=== PATIENT | male | born 1980 | race Caucasian/White ===

== ENCOUNTER → 2021-08-19 09:20 | Outpatient (CLI) | payer OTHER, MEDICAID, SELFPAY ==
--- NOTE | 2021-08-19 | DI.CT.S_ITS ---
PROCEDURE: CT ANGIO CHEST PE PROTOCOL INDICATIONS: Personal history of other venous thrombosis and embolism TECHNIQUE: After the administration of intravenous contrast, 2 mm thick sections acquired from the pulmonary apices to the posterior costophrenic angles. 3-dimensional maximum intensity projection (MIP) coronal and sagittal reformats were then acquired through the thorax. For radiation dose reduction, the following was used: automated exposure control, adjustment of mA and/or kV according to patient size. COMPARISON: None. FINDINGS: Image quality: Excellent. Pulmonary arteries: Question tiny adherent embolus it here into the wall of the right lower lobe pulmonary artery on image 88/5 as well as tiny adherent basilar right lower lobe pulmonary emboli on image 104 and image 105, possibly representing chronic sequelae of previous pulmonary embolus. No findings suggesting acute pulmonary emboli. Lungs and pleura: Lungs are clear. No pleural effusions or pneumothorax. Central and peripheral airways are patent. Mediastinum: Heart size is normal, without pericardial effusion. No mediastinal or hilar adenopathy. Thoracic aorta is normal in caliber and enhancement. Esophagus is normal in caliber, without hiatal hernia. Bones and chest wall: No suspicious bony lesions. Ribs and thoracic spine appear intact throughout. Thyroid gland is unremarkable as visualized. No axillary or supraclavicular adenopathy. Abdomen: Visualized upper abdominal solid organs appear normal in the early arterial phase of enhancement. IMPRESSION: 1. Findings in the right lower lobe pulmonary artery and basilar right lower lobe pulmonary artery segment most likely represent tiny adherent sequelae of previous pulmonary emboli. No findings present which are suspicious for acute pulmonary emboli. 2. No evidence of acute pulmonary process. Dictated by: Woody Torres M.D. on 08/19/2021 at 10:06 Approved by: Woody Torres M.D. on 08/19/2021 at 10:24
== END ==
PROVIDERS: PCP Family Medicine; Referring Provider Family Medicine; Visit Provider Family Medicine
DX: M54.6 Pain in thoracic spine (principal); R06.02 Shortness of breath; Z86.718 Personal history of other venous thrombosis and embolism
CPT/HCPCS: 71275

== ENCOUNTER 2022-02-12 13:35 | Emergency (ER) | payer OTHER, MEDICAID, SELFPAY ==
[2022-02-12 14:23] VITALS: BP 141/86; PULSE 68; RESP 18; TEMP 36.5; O2SAT 96; BMI 29.0
--- NOTE | 2022-02-12 14:30 | DI.RAD.S_ITS ---
PROCEDURE: XR CHEST 2V INDICATIONS: cough for two weeks, difficulty breathing, had covid TECHNIQUE: 2 views of the chest were acquired. COMPARISON: None. FINDINGS: Surgical changes and devices: None. Lungs and pleura: Lungs are clear. No pleural effusions or pneumothorax. Mediastinum: Mediastinal contours are normal. Heart size is normal. Bones and chest wall: No suspicious bony abnormalities. Soft tissues appear unremarkable. IMPRESSION: No acute cardiopulmonary findings. Dictated by: Jasmina Jean M.D. on 02/12/2022 at 14:45 Approved by: Jasmina Jean M.D. on 02/12/2022 at 14:45
[2022-02-12 17:18] VITALS: PULSE 66; RESP 16; O2SAT 97
--- NOTE | 2022-02-12 18:29 | ED.URI ---
HPI - URI/Sore Throat <Ivette Linda PA-C - Last Filed: 02/12/22 18:38> General Chief Complaint: Upper Respiratory Symptoms Stated Complaint: ANDRES Bolanos Time Seen by Provider: 02/12/22 16:44 Source: patient Mode of arrival: Ambulatory History of Present Illness HPI Narrative: Patient is a 42-year-old male presenting with shortness of breath and cough for 1 week. He was diagnosed with COVID-19 2 weeks ago. His prior COVID-19 symptoms have since resolved but he has new onset cough and shortness of breath. He describes the cough as dry and nonproductive, and shortness of breath is worse with exertion. He denies any headache, dizziness, nasal congestion, sore throat, chest pain, abdominal pain, nausea. He presented to the ER today because he was concerned he may have pneumonia. He has an albuterol inhaler that he has tried taking once with limited resolution of symptoms. Related Data Home Medications Medication Instructions Recorded Confirmed rivaroxaban 20 mg tablet (Xarelto) 20 mg PO DAILY 11/10/20 01/11/22 magnesium chloride 64 mg 64 mg PO DAILY 01/11/22 01/11/22 tablet,extended release Previous Rx's Medication Instructions Recorded rivaroxaban 20 mg tablet 20 mg PO DAILY #180 tab 07/13/21 Allergies Allergy/AdvReac Type Severity Reaction Status Date / Time No Known Allergies Allergy Verified 11/10/20 15:50 Review of Systems <Ivette Linda PA-C - Last Filed: 02/12/22 18:38> Review of Systems Narrative: GENERAL: Denies fatigue, fever, or chills HEENT: Denies ear pain, vision changes, sore throat, or difficulty swallowing RESPIRATORY: See HPI. CARDIOVASCULAR: Denies chest pain, pressure, palpitations, or edema GASTROINTESTINAL: Denies, nausea, vomiting, changes in bowel movements, or abdominal pain : Denies dysuria, frequency, hematuria, or flank pain MUSCULOSKELETAL: Denies weakness, arthralgias, or myalgias SKIN: No rash, pruritis, or erythema NEUROLOGIC: Denies weakness, dizziness, headache, numbness, tingling or confusion PSYCHIATRIC: No concerning psychosocial issues. Patient History <Ivette Linda PA-C - Last Filed: 02/12/22 18:38> Medical History Chronic back pain Surgical History H/O knee surgery Family History Brother VTE (venous thromboembolism) Social History Smoking Status: Never smoker substance use type: does not use Smoking Status: Never smoker alcohol intake frequency: 0-2 drinks per day Substance Use Type: marijuana Exam <Ivette Linda PA-C - Last Filed: 02/12/22 18:38> Narrative Exam Narrative: GENERAL: 42 year old patient appears stated age. Well-developed patient, in mild distress. HEAD: Atraumatic. Normocephalic. EYES: Pupils equal round and reactive. Extraocular motions intact. No scleral icterus. No injection or drainage. ENT: Nose without bleeding, purulent drainage. Throat without erythema, tonsillar hypertrophy or exudate. Airway patent. NECK: Trachea midline. Non tender CARDIOVASCULAR: Regular rate and rhythm without murmurs, gallops, or rubs. RESPIRATORY: Clear to auscultation. Breath sounds equal bilaterally. No wheezes, rales, or rhonchi. GASTROINTESTINAL: Abdomen soft, non-tender, nondistended. EXTREMITIES: No edema or joint tenderness. BACK: Nontender without deformity or crepitance. No flank tenderness. NEURO: AOx3. SKIN: No rash, edema, or erythema of visible areas Initial Vital Signs Initial Vital Signs: Vital Signs Temperature 97.7 F 02/12/22 14:23 Pulse Rate 68 02/12/22 14:23 Respiratory Rate 18 02/12/22 14:23 Blood Pressure 141/86 H 02/12/22 14:23 Pulse Oximetry 96 02/12/22 14:23 <Beth Jimenez DO - Last Filed: 02/17/22 07:14> Initial Vital Signs Initial Vital Signs: Vital Signs Temperature 97.7 F 02/12/22 14:23 Pulse Rate 68 02/12/22 14:23 Respiratory Rate 18 02/12/22 14:23 Blood Pressure 141/86 H 02/12/22 14:23 Pulse Oximetry 96 02/12/22 14:23 Course <Ivette Linda PA-C - Last Filed: 02/12/22 18:38> Orders Ordered: ED Orders 02/12/22 14:30 XR chest 2V Stat Vital Signs Vital signs: Vital Signs - 8 hr 02/12/22 14:23 02/12/22 17:18 Temperature 97.7 F Pulse Rate 68 66 Respiratory Rate 18 16 Blood Pressure 141/86 H Pulse Oximetry 96 97 <Beth Jimenez DO - Last Filed: 02/17/22 07:14> Orders Ordered: ED Orders 02/12/22 14:30 XR chest 2V Stat Vital Signs Vital signs: Vital Signs - 8 hr 02/12/22 14:23 02/12/22 17:18 Temperature 97.7 F Pulse Rate 68 66 Respiratory Rate 18 16 Blood Pressure 141/86 H Pulse Oximetry 96 97 MDM - URI/Sore Throat <Ivette Linda PA-C - Last Filed: 02/12/22 18:38> Imaging Data Chest x-ray: Radiologist's Impression: [address] [address] XRay Report Signed Patient: Hill Harper MR#: [id number] : 1980 Acct:[id number] Age/Sex: 42 / M Date of Service: 02/12/22 Loc: ED Accession Number: [id number] ?? Procedure: XR chest 2V Ordering Provider: Beth Jimenez D.O. PROCEDURE:? XR CHEST 2V ? INDICATIONS:? cough for two weeks, difficulty breathing, had covid ? TECHNIQUE:? 2 views of the chest were acquired.? ? COMPARISON:? None. ? FINDINGS:? ? Surgical changes and devices:? None.? ? Lungs and pleura:? Lungs are clear.? No pleural effusions or pneumothorax.? ? Mediastinum:? Mediastinal contours are normal.? Heart size is normal.? ? Bones and chest wall:? No suspicious bony abnormalities.? Soft tissues appear unremarkable.? ? IMPRESSION:? No acute cardiopulmonary findings. ? ? Dictated by: Jasmina Jean M.D. on 02/12/2022 at 14:45 ? ? Approved by: Jasmina Jean M.D. on 02/12/2022 at 14:45 ? MDM Narrative Medical decision making narrative: Patient is a 42-year-old man presenting today with shortness of breath and cough for the past 7 days. His chest x-ray came back normal. His vitals are stable, and his lungs are clear bilaterally with equal breath sounds and no signs of wheezing. Based on the HPI and physical exam, his symptoms are likely due to his COVID-19 diagnosis 2 weeks ago and should improve as he continues to recover. I encouraged him to drink plenty of fluids, use a humidifier or steam shower, and to continue taking his albuterol he inhaler as needed. I instructed him to return to the ER with worsening shortness of breath, chest pain, leg swelling, or other concerning symptoms. Findings and discharge diagnosis discussed with patient/family followed by verbalization of understanding Return precautions discussed with patient/family whom verbalize understanding. Discharge Plan Departure Patient Disposition: Home Clinical Impression: SOB (shortness of breath), Cough Instructions: DI for Viral Syndrome Activity Restrictions/Additional Instructions: *You have been diagnosed with shortness of breath and cough likely due to COVID-19 diagnosis. As discussed, you should drink plenty of fluids, use a humidifier or steam shower, and continue taking your albuterol inhaler as needed. If your cough and shortness of breath worsen or you develop a fever, chest pain, unusual swelling, or other concerning symptoms please return back to the ER. *Please follow up with your primary care provider in 2-3 days, call for an appointment. Let them know you were seen in the Emergency Department and that we ask that you be seen in follow up. We will electronically transmit a record of today's note if your PCP is in our system *If you do not have a primary care provider please contact the [facility] Center at [phone] and they can help get you set up with a doctor in the community. *Return to Emergency Department if you should have any new, worsening or concerning symptoms, such as [fever greater than 101 F, shaking chills, worsening pain, persistent vomiting or other bothersome symptoms] Prescriptions: No Action Xarelto 20 mg Tablet 20 mg PO DAILY 0RF rivaroxaban 20 mg Tablet 20 mg PO DAILY Qty: 180 2RF Rx Instructions: must administer with evening meal Slow-Mag 64 mg Tablet Extended Release 64 mg PO DAILY 0RF Referrals: Buck Pearce MD [Primary Care Provider] - <Beth Jimenez DO - Last Filed: 02/17/22 07:14> Cosign ED Attending Cosignature Attestation: I was immediately available in the department for consultation. Documentation has been reviewed. Case was discussed.
== END 2022-02-12 17:18 | disposition home or self-care (01) ==
PROVIDERS: Emergency Provider Physician Assistant; PCP Family Medicine
DX: R06.02 Shortness of breath (principal); R05.9 Cough, unspecified; Z86.16 Personal history of COVID-19
CPT/HCPCS: 71046; 99283

== ENCOUNTER 2023-04-20 07:35 | Emergency (ER) | payer OTHER, MEDICAID, SELFPAY ==
[2023-04-20 07:53] VITALS: BP 151/94; PULSE 67; RESP 14; TEMP 36.5; O2SAT 99; BMI 26.9
--- NOTE | 2023-04-20 08:05 | PC.NURSE ---
Uritcaria and raised rash on R upper arm, bilateral flanks.
--- NOTE | 2023-04-20 08:12 | ED.ALLEREA ---
HPI - Allergic Reaction General Chief complaint: Allergic Reaction Stated complaint: allergic reaction Time Seen by Provider: 04/20/23 08:01 Source: patient Mode of arrival: Ambulatory History of Present Illness HPI narrative: Patient brought self here for complaints of itching and red raised lesions on his forearms for the past week. Has had hives on the forearms bilaterally and on his waist area. Sometimes on his legs. Denies denies any new products. No new detergents soaps shampoos medications or foods. 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 Last night he had some swelling to his upper lip which is new. Is not on any lisinopril or POLO inhibitor blood pressure medication. No trouble breathing. No drooling. No tongue swelling or elevation. Patient does have history of pulmonary embolism, has been on Xarelto since 2014. Denies denies any chest pain or shortness of breath. There is family history of autoimmune diseases including scleroderma and coagulation disorder. Patient has been taking Benadryl for the itching. At this time laboratory studies would likely be skewed for inflammatory markers. No blood work to be done today. 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 Related Data Home Medications Medication Instructions Recorded Confirmed magnesium chloride 64 mg 64 mg PO DAILY 01/11/22 01/11/22 tablet,extended release Previous Rx's Medication Instructions Recorded rivaroxaban 20 mg tablet (Xarelto) 20 mg PO DAILY #30 tabs 08/11/22 famotidine 20 mg tablet 20 mg PO BID #14 tabs 04/20/23 hydroxyzine HCl 25 mg tablet 25 mg PO QID PRN itching #20 tabs 04/20/23 methylprednisolone 4 mg tablets in See Rx Instructions PO .COMPLEX 04/20/23 a dose pack (Medrol (Hakeem)) #21 ea Allergies Allergy/AdvReac Type Severity Reaction Status Date / Time No Known Allergies Allergy Verified 11/10/20 15:50 Review of Systems Review of Systems Narrative: GENERAL: negative chills, fatigue, malaise, fever, sweats. HEENT: negative sinus pain, ear pain, sore throat RESPIRATORY: negative dyspnea, cough CARDIOVASCULAR: negative chest pain, palpitations GASTROINTESTINAL: negative nausea, vomiting, abdominal pain : negative dysuria, frequency, hematuria MUSCULOSKELETAL: negative muscle or bony pain SKIN: Positive pruritus, rash, skin lesions NEUROLOGIC: negative weakness, numbness ROS Unobtainable: All systems reviewed & are unremarkable except as noted in HPI and below Patient History Medical History Chronic back pain Surgical History H/O knee surgery Family History Brother VTE (venous thromboembolism) Social History Smoking Status: Never smoker substance use type: does not use Smoking Status: Never smoker alcohol intake frequency: 0-2 drinks per day Substance Use Type: marijuana Exam Narrative Exam Narrative: GENERAL: in no distress, not toxic not dyspneic HEAD: Normocephalic. EYES: Pupils equal round ENT: Mucous membranes moist. No tongue elevation or drooling. No trismus or malocclusion. There is mild/moderate edema to the mid upper lip. It is symmetric. NECK: Trachea midline. No stridor. CARDIOVASCULAR: Regular rate and rhythm RESPIRATORY: Clear to auscultation. Breath sounds equal bilaterally. No wheezes, rales, or rhonchi. Speaking full sentences. No respiratory distress GASTROINTESTINAL: Abdomen soft, non-tender EXTREMITIES: No gross deformities. BACK: No flank tenderness. NEURO: AOx4. SKIN: Warm and dry, currently there are 2 erythematous hives on the right bicep. None seen on the back or chest or abdomen. None on the face. PSYCH: Not anxious, is cooperative Initial Vital Signs Initial Vital Signs: Vital Signs Temperature 97.7 F 04/20/23 07:53 Pulse Rate 67 04/20/23 07:53 Respiratory Rate 14 04/20/23 07:53 Blood Pressure 151/94 H 04/20/23 07:53 Pulse Oximetry 99 04/20/23 07:53 Oxygen Delivery Method Room Air 04/20/23 07:53 Course Orders Ordered: Discontinued Medications Famotidine (Famotidine 20 Mg/2 Ml Vial) 20 mg IV NOW HAMMAD Last Admin: 04/20/23 08:32 Dose: 20 mg Documented By: ST Methylprednisolone (Methylprednisolone 125 Mg/2 Ml Vial) 125 mg IV NOW ONE Stop: 04/20/23 08:13 Last Admin: 04/20/23 08:32 Dose: 125 mg Documented By: ST Vital Signs Vital signs: Vital Signs - 8 hr 04/20/23 07:53 Temperature 97.7 F Pulse Rate 67 Respiratory Rate 14 Blood Pressure 151/94 H Pulse Oximetry 99 Oxygen Delivery Method Room Air MDM - Allergic Reaction MDM Narrative Medical decision making narrative: Patient brought self here for complaints of itching and red raised lesions on his forearms for the past week. Has had hives on the forearms bilaterally and on his waist area. Sometimes on his legs. Denies denies any new products. No new detergents soaps shampoos medications or foods. 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 Last night he had some swelling to his upper lip which is new. Is not on any lisinopril or POLO inhibitor blood pressure medication. No trouble breathing. No drooling. No tongue swelling or elevation. Patient does have history of pulmonary embolism, has been on Xarelto since 2014. Denies denies any chest pain or shortness of breath. There is family history of autoimmune diseases including scleroderma and coagulation disorder. Patient has been taking Benadryl for the itching. At this time laboratory studies would likely be skewed for inflammatory markers. No blood work to be done today. 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 After history and exam Solu-Medrol Pepcid MDM CC: Hives Complicating co-morbidities: Family history autoimmune disease, sister with scleroderma Data collected from: Patient Medical records reviewed: No recent visit for this complaint Differential considered: Includes but not limited to contact dermatitis urticaria angioedema Exam documented above, pertinent findings include: Hives on right arm Lab Test results independently reviewed as above. Pertinent findings: None indicated at this time Treatments: Solu-Medrol Pepcid Re-evaluations: 9:30 a.m. Reviewed exam with patient. Patient in no distress. No airway compromise at time of discharge. Patient agrees with treatment plan. He does have family doctor to follow up for referral to veterans' counselor hvac lead chip applying machine tender. Return precautions reviewed, he desires discharge home. Not toxic or dyspneic. Patient has not any worsening his hives or lip swelling. Airway intact. Discussion: Appropriate for discharge home. No laboratory studies indicated at this time as patient has been taking Benadryl and may skew inflammatory markers or autoimmune markers. Appropriate for outpatient follow up. Appropriate for starting prednisone and Pepcid at this time. Hydroxyzine will given as needed for itching. Not toxic at discharge. Return precautions reviewed. Patient desires discharge home. Patient observed here for 2 hours, no airway compromise Diagnosis: Urticaria Discharge Plan Departure Patient Disposition: Home Clinical Impression: Urticaria Instructions: DI for Hives Activity Restrictions/Additional Instructions: Continue steroid pack tomorrow. Prescriptions have been sent to your pharmacy and ready to steel pickler likely today. Please see family doctor this week for re-evaluation and get referral for Dermatology, Rheumatology, and allergy testing. Return if worse if any questions or concerns Prescriptions: New famotidine 20 mg tablet 20 mg PO BID Qty: 14 0RF methylprednisolone [Medrol (Hakeem)] 4 mg tablets,dose pack See Rx Instructions .ROUTE .COMPLEX Qty: 21 0RF Rx Instructions: orally per package directions hydroxyzine HCl 25 mg tablet 25 mg PO QID PRN (Reason: itching) Qty: 20 0RF No Action Slow-Mag 64 mg Tablet Extended Release 64 mg PO DAILY Xarelto 20 mg Tablet 20 mg PO DAILY Qty: 30 0RF Rx Instructions: take with evening meal daily Referrals: Buck Pearce MD [Primary Care Provider] - Stand Alone Forms: Patient Portal/API
[2023-04-20] MEDS: methylPREDNISolone 125 MG/2 ML VIAL IV (08:32)
[2023-04-20] MEDS: FAMOTIDINE 20 MG/2 ML VIAL IV (08:32)
[2023-04-20 09:18] VITALS: PULSE 65; RESP 18; O2SAT 98
[2023-04-20 09:30] VITALS: BP 139/84; PULSE 67; RESP 20; O2SAT 99
== END 2023-04-20 10:00 | disposition home or self-care (01) ==
PROVIDERS: Emergency Provider Emergency Medicine; PCP Family Medicine
DX: L50.9 Urticaria, unspecified (principal); T78.40XA Allergy, unspecified, initial encounter
CPT/HCPCS: 36415; 96374; 96375; 99284; J2930

== ENCOUNTER 2024-11-15 10:13 | Emergency (ER) | payer OTHER, SELFPAY ==
[2024-11-15 10:16] VITALS: BP 148/92; PULSE 58; RESP 12; TEMP 36.6; O2SAT 98; BMI 31.1
--- NOTE | 2024-11-15 10:24 | EKG_ITS ---
[address] [address] Test Date: 2024-11-15 Pat Name: Hill Harper Department: Room: Gender: Male [employer]: AGATA : 1980 Requested By: Order Number: [id number] Reading MD: Yeison Merchant Measurements Intervals [place] Rate: 57 P: 33 MA: 172 QRS: 45 QRSD: 114 T: 30 QT: 426 QTc: 414 Interpretive Statements Sinus bradycardia with sinus arrhythmia Cannot rule out Anterior infarct , age undetermined Electronically Signed On 11-18-2024 18:55:30 PST by Yeison Merchant
[2024-11-15 10:37] VITALS: BP 131/80; PULSE 62; RESP 16; RESP 18; O2SAT 97; O2SAT 98
--- NOTE | 2024-11-15 10:40 | ED.CHESTPAIN ---
HPI - Chest Pain General Chief Complaint: Chest Pain Stated Complaint: SOB/ Dizziness blood clotting disorder Time Seen by Provider: 11/15/24 10:30 Source: patient Mode of arrival: Ambulatory Limitations: no limitations History of Present Illness HPI narrative: Patient here for dizziness dyspnea for the past 3 weeks. Patient recently traveled to [place] for family vacation. 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 Patient sees hematology, Dr. Han type 3 protein S deficiency. Patient in no distress at this time. Not requiring supplemental oxygen. Patient is speaking full sentences. Patient has had right side chest discomfort. Last CT imaging of chest done here August 19. Denies any calf pain or any new leg swelling. He wears compression stockings daily. Related Data Home Medications Medication Instructions Recorded Confirmed magnesium chloride 64 mg 64 mg PO DAILY 01/11/22 01/11/22 tablet,extended release Previous Rx's Medication Instructions Recorded rivaroxaban 20 mg tablet (Xarelto) 20 mg PO DAILY #30 tabs 08/11/22 famotidine 20 mg tablet 20 mg PO BID #14 tabs 04/20/23 hydroxyzine HCl 25 mg tablet 25 mg PO QID PRN itching #20 tabs 04/20/23 methylprednisolone 4 mg tablets in See Rx Instructions PO .COMPLEX 04/20/23 a dose pack (Medrol (Hakeem)) #21 ea Allergies Allergy/AdvReac Type Severity Reaction Status Date / Time No Known Allergies Allergy Verified 11/15/24 10:26 Review of Systems Review of Systems Narrative: GENERAL: Negative chills, fatigue, malaise, fever, sweats. HEENT: Negative sinus pain, ear pain, sore throat RESPIRATORY: Positive dyspnea, negative cough CARDIOVASCULAR: Positive chest pain, negative palpitations GASTROINTESTINAL: Negative nausea, vomiting, abdominal pain : Negative dysuria, frequency, hematuria MUSCULOSKELETAL: Negative muscle or bony pain SKIN: Negative rash, skin lesions NEUROLOGIC: Negative weakness, numbness, positive dizziness ROS Unobtainable: All systems reviewed & are unremarkable except as noted in HPI and below Patient History Medical History Chronic back pain Surgical History H/O knee surgery Family History Brother VTE (venous thromboembolism) Social History Smoking Status: Never smoker substance use type: does not use Smoking Status: Never smoker alcohol intake frequency: 0-2 drinks per day Exam Narrative Exam Narrative: GENERAL: in no distress, not toxic not dyspneic HEAD: Normocephalic. EYES: Pupils equal round ENT: Mucous membranes moist. NECK: Trachea midline. CARDIOVASCULAR: Regular rate and rhythm RESPIRATORY: Clear to auscultation. Breath sounds equal bilaterally. No wheezes, rales, or rhonchi. Chest is nontender. GASTROINTESTINAL: Abdomen soft, non-tender EXTREMITIES: No gross deformities. Nontender calves. BACK: No flank tenderness. NEURO: AOx4. Clear speech SKIN: Warm and dry PSYCH: Not anxious, is cooperative Initial Vital Signs Initial Vital Signs: Vital Signs Temperature 97.9 F 11/15/24 10:16 Pulse Rate 58 L 11/15/24 10:16 Respiratory Rate 12 11/15/24 10:16 Blood Pressure 148/92 H 11/15/24 10:16 Pulse Oximetry 98 11/15/24 10:16 Oxygen Delivery Method Room Air 11/15/24 10:16 Course Orders Ordered: Discontinued Medications Sodium Chloride (Normal Saline 0.9%) 1,000 mls @ 1,000 mls/hr IV BOLUS ONE Stop: 11/15/24 11:38 Last Infusion: 11/15/24 12:28 Dose: Infused Documented By: Admin: 11/15/24 11:26 Dose: 1,000 mls/hr Documented By: MAYRA Vital Signs Vital signs: Vital Signs - 8 hr 11/15/24 10:16 11/15/24 10:37 Temperature 97.9 F Pulse Rate 58 L 62 Respiratory Rate 12 18 Blood Pressure 148/92 H 131/80 Pulse Oximetry 98 97 Oxygen Delivery Method Room Air Room Air MDM - Chest Pain Lab Data 11/15/24 10:25 11/15/24 10:25 Labs: Lab Results 11/15/24 11/15/24 Range/Units 10:25 10:45 WBC 8.0 (4.5-11.0) X10^3/uL RBC 5.76 (4.5-5.9) X10^6/uL Hgb 17.1 (13.5-17.5) g/dL Hct 49.2 (41-53) % MCV 85.4 (80-100) fL MCH 29.7 (26-34) PG MCHC 34.7 (30-36) % RDW 13.9 (11.6-14.8) % Plt Count 178 (150-400) X10^3/uL Neut % (Auto) 47.7 L (50-75) % Lymph % (Auto) 41.6 H (25-40) % [place] % (Auto) 7.2 (3-14) % Eos % (Auto) 3.0 (2-4) % Baso % (Auto) 0.5 (0-2) % Neut # (Auto) 3800 (1671-6982) /uL Lymph # (Auto) 3300 (6558-8646) /uL [place] # (Auto) 600 (0-900) /uL Eos # (Auto) 200 (0-450) /uL Baso # (Auto) 0 (0-100) /uL PT 15.4 H (9.4-12.5) SECONDS INR 1.4 H (0.9-1.3) APTT 46 H (25.1-36.5) SECONDS Sodium 137 (137-145) mmol/L Potassium 4.3 (3.4-5.1) mmol/L Chloride 105 (98-107) mmol/L Carbon Dioxide 20 L (22-32) mmol/L BUN 17 (9-20) mg/dL Creatinine 0.97 (0.66-1.25) mg/dL Estimated GFR > 60 (>60) mL/min BUN/Creatinine Ratio 17.5 (6-22) Glucose 94 (70-100) mg/dL Calcium 9.4 (8.4-10.2) mg/dL Magnesium 1.8 (1.6-2.3) mg/dL Total Bilirubin 0.9 (0.2-1.3) mg/dL AST 32 (17-59) IU/L ALT 42 (<50) IU/L Alkaline Phosphatase 68 (38-126) U/L Total Creatine Kinase 95 (55-170) U/L Troponin I < 0.012 (0.01-0.034) ng/mL NT-Pro-B Natriuret Pep 37 (<125) pg/mL Total Protein 8.0 (6.3-8.2) g/dL Albumin 4.9 (3.5-5.0) g/dL Globulin 3.1 (1.7-4.1) g/dL Albumin/Globulin Ratio 1.6 (1.0-2.8) Lipase 363 H (23-300) U/L Chlamy pneumoniae PCR Not detected (Not Detect) Adenovirus (PCR) Detected H (Not Detect) B. pertussis DNA (PCR) Not detected (Not Detect) B.parapertussis DNA PCR Not detected (Not Detecte) Coronavirus OC43 (PCR) Not detected (Not Detect) Coronavirus HKU1 (PCR) Not detected (Not Detect) Coronavirus 229E (PCR) Not detected (Not Detect) SARS-CoV-2 (PCR) Not detected (Not Detecte) Coronavirus NL63 (PCR) Not detected (Not Detect) Human Metapneumovir PCR Not detected (Not Detect) Influenza Type A (PCR) Not detected (Not Detect) Influenza Type B (PCR) Not detected (Not Detect) M. pneumoniae (PCR) Not detected (Not Detect) Parainfluenza 1 (PCR) Not detected (Not Detect) Parainfluenza 2 (PCR) Not detected (Not Detect) Parainfluenza 3 (PCR) Not detected (Not Detect) Parainfluenza 4 (PCR) Not detected (Not Detect) RSV (PCR) Not detected (Not Detect) Entero/Rhino (PCR) Not detected (Not Detect) Imaging Data CT scan - chest: Radiologist's Impression: [place] [address] CT Scan Report Signed Patient: Hill Harper MR#: [id number] : 1980 Acct:[id number] Age/Sex: 44 / M Date of Service: 11/15/24 Loc: ED Accession Number: [id number] Procedure: CT angio chest PE protocol Ordering Provider: Eugene Vasquez MD PROCEDURE: CT ANGIO CHEST PE PROTOCOL INDICATIONS: Dizzy/dyspnea/history of PE TECHNIQUE: After the administration of intravenous contrast, 2 mm thick sections acquired from the pulmonary apices to the posterior costophrenic angles. 3-dimensional maximum intensity projection (MIP) coronal and sagittal reformats were then acquired through the thorax. For radiation dose reduction, the following was used: automated exposure control, adjustment of mA and/or kV according to patient size. COMPARISON: [facility], CT, CT ANGIO CHEST PE PROTOCOL, 08/19/2021, 9:34. FINDINGS: Image quality: Diagnostic. Pulmonary arteries: Pulmonary arteries are normal in size. Small peripheral filling defect involving right lower lobe are and proximal right lower lobe segmental pulmonary arteries is stable compared to prior exam. No acute pulmonary embolus. Lower Neck: No enlarged lymph nodes. Thyroid: No thyroid nodules which require sonographic follow up, per consensus guidelines. Axillae: No enlarged lymph nodes. Chest Wall: Unremarkable. Bones: Subacute left 10th rib fracture. Lungs and Pleura: No pneumothorax or pleural effusions. No consolidation or suspicious nodules. Heart: Heart size is normal. No pericardial effusion. Thoracic Vessels: No aortic aneurysm. Mediastinum and [place]: No enlarged lymph nodes. Esophagus: No wall thickening. No hiatal hernia. Upper Abdomen: Visualized upper abdomen solid organs and bowel loops appear normal. IMPRESSION: No acute pulmonary embolus. Small peripheral filling defect involving right lower lobar and subsegmental pulmonary arteries is stable compared to prior exam may represent sequela of pulmonary embolus in the remote past or flow artifact. No lung consolidation or pleural effusions. 7 millimeter and 5 millimeter right middle lobe lung nodules. Recommend follow-up CT scan in 6-12 months based on criteria outlined below. Fleischner Society criteria for SOLID lung nodule followup. Nodule size (mm)Low-risk patientHigh-risk patient<6 (single or multiple)No routine followup.Optional CT at 12 months. 6-8 (single or multiple)CT at 6-12 months, then optional CT at 18-24 mo.CT at 6-12 months, then CT at 18-24 months. >8 (single)CT at 3 months, PET-CT, or biopsy. Same as for low-risk pts. >8 (multiple)CT at 3-6 months, then optional CT at 18-24 mo.CT at 3-6 months, then CT at 18-24 months. Recommendations do not apply to lung cancer screening, patients with immunosuppression, or patients with known primary cancer. Dictated by: Elvira Cole MD, PhD on 11/15/2024 at 11:16 Approved by: Elvira Cole MD, PhD on 11/15/2024 at 11:24 [facility] Narrative Medical decision making narrative: Patient here for dizziness dyspnea for the past 3 weeks. Patient recently traveled to [place] for family vacation. 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 Patient sees hematology, Dr. Han type 3 protein S deficiency. Patient in no distress at this time. Not requiring supplemental oxygen. Patient is speaking full sentences. Patient has had right side chest discomfort. Last CT imaging of chest done here August 19. Denies any calf pain or any new leg swelling. He wears compression stockings daily. After history and exam EKG CBC CMP respiratory panel CT chest normal saline troponin BNP PT INR PTT [facility] Medical records reviewed: CT chest August 19, 2021 Differential considered: Includes but not limited to pulmonary embolism pneumonia viral syndrome dehydration arrhythmia bronchitis atrial fibrillation Lab Test results independently reviewed as above. Pertinent findings: WBC 8.7 hemoglobin 17.1 INR 1.4 sodium 137 potassium 4.3 BUN 17 creatinine 0.97 GFR greater than 60 glucose 94 AST 32 ALT 42 troponin less than 0.012 BNP 37 respiratory panel positive for adenovirus Independently reviewed EKG sinus rhythm rate [address] elevation or depression Imaging studies independently reviewed: CT chest no PE no acute finding Consultations: None indicated this time Treatments: Normal saline Re-evaluations: 12:15 p.m.. Updated patient results. Positive adenovirus likely from his recent travel. It could explain some of the dizziness. Exam and laboratory studies imaging studies are reassuring. Return precautions reviewed with him. Home medications to be continued. He will follow up with his primary care. He desires discharge home Discussion: Appropriate for discharge home exam is reassuring. Return precautions reviewed with patient. Nontoxic at discharge. Vital signs are reassuring. Patient no distress. Laboratory results are reassuring. He did test positive for adenovirus. No prescriptions are indicated. Diagnosis: Dizziness dyspnea adeno virus infection Discharge Plan Departure Patient Disposition: Home Clinical Impression: Acute dyspnea, Dizziness, Adenovirus infection Instructions: Adenovirus Infection, DI for Shortness of Breath, DI for Dizziness-Nonvertigo Activity Restrictions/Additional Instructions: Your exam and laboratory studies and imaging studies are reassuring. You did test positive for adenovirus. No antibiotics or prescriptions are indicated. Keep herself well hydrated. Continue home medications. Return if worse if any questions or concerns.. See family doctor in a week for re-evaluation. Prescriptions: No Action Slow-Mag 64 mg Tablet Extended Release 64 mg PO DAILY Xarelto 20 mg Tablet 20 mg PO DAILY Qty: 30 0RF Rx Instructions: take with evening meal daily famotidine 20 mg tablet 20 mg PO BID Qty: 14 0RF methylprednisolone [Medrol (Hakeem)] 4 mg tablets,dose pack See Rx Instructions .ROUTE .COMPLEX Qty: 21 0RF Rx Instructions: orally per package directions hydroxyzine HCl 25 mg tablet 25 mg PO QID PRN (Reason: itching) Qty: 20 0RF Referrals: Buck Pearce MD [Primary Care Provider] - Stand Alone Forms: Patient Portal/API/Survey
[2024-11-15 10:51] LABS: Add Manual Diff / Slide Review NO; Basophils Absolute Auto 0 /uL (0-100); Basophils Percent Auto 0.5 % (0-2); Eosinophils Absolute Auto 200 /uL (0-450); Hematocrit 49.2 % (41-53); Hemoglobin 17.1 g/dL (13.5-17.5); INR 1.4 (0.9-1.3); Lymphocytes Absolute Auto 3300 /uL (1100-4500); Lymphocytes Percent Auto 41.6 % (25-40); Mean Corpuscular HGB Conc 34.7 % (30-36); Mean Corpuscular Hemoglobin 29.7 PG (26-34); Mean Corpuscular Volume 85.4 fL (80-100); Monocytes Absolute Auto 600 /uL (0-900); Monocytes Percent Auto 7.2 % (3-14); Neutrophils Absolute Auto 3800 /uL (1500-7000); Neutrophils Percent Auto 47.7 % (50-75); Platelet Count 178 X10^3/uL (150-400); Prothrombin Time 15.4 SECONDS (9.4-12.5); Red Blood Cell Count 5.76 X10^6/uL (4.5-5.9); Red Cell Distribution Width 13.9 % (11.6-14.8)
[2024-11-15 10:54] LABS: Alanine Aminotransferase 42 IU/L (<50); Albumin 4.9 g/dL (3.5-5.0); Albumin Globulin Ratio 1.6 (1.0-2.8); Alkaline Phosphatase 68 U/L (38-126); Aspartate Aminotransferase 32 IU/L (17-59); BUN Creatinine Ratio 17.5 (6-22); Bilirubin Total 0.9 mg/dL (0.2-1.3); Blood Urea Nitrogen 17 mg/dL (9-20); Calcium 9.4 mg/dL (8.4-10.2); Carbon Dioxide 20 mmol/L (22-32); Chloride 105 mmol/L (98-107); Creatine Kinase 95 U/L (55-170); Estimated Glomerular Filt Rate > 60 mL/min (>60); Globulin 3.1 g/dL (1.7-4.1); Glucose 94 mg/dL (70-100); HEMOLYSIS < 15 (0-50); Lipase 363 U/L (23-300); Magnesium 1.8 mg/dL (1.6-2.3); Potassium 4.3 mmol/L (3.4-5.1); Sodium 137 mmol/L (137-145)
[2024-11-15 11:00] VITALS: PULSE 60; RESP 18; O2SAT 96
[2024-11-15 11:02] LABS: PTT Partial Thromboplastin Tim 46 SECONDS (25.1-36.5)
[2024-11-15 11:06] LABS: NT-proBNP (BNP-Adult 18+) 37 pg/mL (<125); Troponin I < 0.012 ng/mL (0.01-0.034)
[2024-11-15] MEDS: SODIUM CHLORIDE 0.9% 1,000 ML 1000 ML IV (11:26)
[2024-11-15 11:30] VITALS: PULSE 59; RESP 16; O2SAT 95
[2024-11-15 11:38] LABS: Adenovirus Detected (Not Detect); B. parapertussis Not Detected (Not Detecte); Bordetella pertussis Not Detected (Not Detect); Chlamydophila pneumoniae Not Detected (Not Detect); Coronavirus 229E Not Detected (Not Detect); Coronavirus HKU1 Not Detected (Not Detect); Coronavirus NL 63 Not Detected (Not Detect); Coronavirus OC43 Not Detected (Not Detect); Human Metapneumovirus Not Detected (Not Detect); Human Rhinovirus/Enterovirus Not Detected (Not Detect); Influenza A Not Detected (Not Detect); Influenza B Not Detected (Not Detect); Mycoplasma pneumoniae Not Detected (Not Detect); Parainfluenza Virus 1 Not Detected (Not Detect); Parainfluenza Virus 2 Not Detected (Not Detect); Parainfluenza Virus 3 Not Detected (Not Detect); Parainfluenza Virus 4 Not Detected (Not Detect); Respiratory Syncytial Virus Not Detected (Not Detect); SARS- CoV-2 Not Detected (Not Detecte)
[2024-11-15 12:00] VITALS: PULSE 52; RESP 15; O2SAT 95
[2024-11-15 12:29] VITALS: BP 138/80
== END 2024-11-15 12:29 | disposition home or self-care (01) ==
PROVIDERS: Emergency Provider Emergency Medicine; PCP Family Medicine
DX: B34.0 Adenovirus infection, unspecified (principal); R06.00 Dyspnea, unspecified; R42 Dizziness and giddiness; D68.59 Other primary thrombophilia; Z86.718 Personal history of other venous thrombosis and embolism; Z79.01 Long term (current) use of anticoagulants; Z86.711 Personal history of pulmonary embolism
CPT/HCPCS: 36415; 71275; 80053; 82550; 83690; 83735; 83880; 84484; 85025; 85610; 85730; 87633; 93005; 96360; 99284; Q9967